=== PATIENT | male | born 1960 | race Caucasian/White ===

== ENCOUNTER 2020-10-13 08:51 | Outpatient (CLI) | payer OTHER, SELFPAY ==
--- NOTE | ~2020-10-13 | CT_ITS ---
EXAMINATION:CT lung screening DATE: 10/13/2020 09:15 INDICATION: Personal history of tobacco dependence. Smoker who quit 5 years ago with 30 pack year his tory. TECHNIQUE: Computed tomography (CT) of the chest was performed without intravenous contrast. Automate d exposure control and iterative reconstruction technique were employed. The dose-length product (DLP ) was 448.51 mGy-cm. COMPARISON: None. FINDINGS: There is a 5 mm nodule in right middle lobe. There is a 5 mm nodule in right lower lobe. Th ere is a 4 mm nodule at left major fissure. No pleural effusion. The heart size is normal. No pericar dial effusion. Calcifications in the spleen are consistent with old granulomatous disease. In the rig ht posterior thorax, there is a 5.3 x 2.8 x 4.5 cm subcutaneous mass. There is mild thoracic spondylo sis. IMPRESSION: 1. Lung-RADS category 2: Benign appearance or behavior. Continue annual screening with noncontrast lo w-dose chest CT in 12 months. 2. 5.3 cm subcutaneous mass in right posterior thorax. The differential diagnosis includes sebaceous cyst and neoplasm. Consider ultrasound-guided core needle biopsy. Reviewed, dictated and finalized at location A. IMPRESSION: 1. Lung-RADS category 2: Benign appearance or behavior. Continue annual screeni ng with noncontrast low-dose chest CT in 12 months. 2. 5.3 cm subcutaneous mass in right posterior thorax. The differential diagnos is includes sebaceous cyst and neoplasm. Consider ultrasound-guided core needle biopsy.
== END 2020-10-13 08:52 | disposition home or self-care (01) ==
PROVIDERS: PCP Internal Medicine; Visit Provider Clinical Nurse Specialist
DX: Z87.891 Personal history of nicotine dependence (principal)
CPT/HCPCS: 71271

== ENCOUNTER → 2020-10-24 00:33 | Outpatient (CLI) | payer OTHER, SELFPAY ==
[2020-10-24 17:44] LABS: SARS-CoV-2 RNA PCR Negative
== END ==
PROVIDERS: PCP Internal Medicine; Visit Provider Surgery
DX: Z01.812 Encounter for preprocedural laboratory examination (principal); Z20.822 Contact with and (suspected) exposure to COVID-19
CPT/HCPCS: C9803; U0003; U0005

== ENCOUNTER 2020-10-24 09:09 | Outpatient (CLI) | payer OTHER, SELFPAY ==
--- NOTE | 2020-10-24 10:45 | ECG_ITS ---
Measurements Intervals [place] Rate: 56 P: 59 PA: 184 QRS: 60 QRSD: 107 T: 29 QT: 415 QTc: 403 Interpretive Statements SINUS BRADYCARDIA BORDERLINE R WAVE PROGRESSION, ANTERIOR LEADS BORDERLINE ECG Electronically Signed On 10-24-2020 10:26:40 CDT by Marcus Mcpherson D.O.
== END 2020-10-24 09:10 | disposition home or self-care (01) ==
PROVIDERS: PCP Internal Medicine; Visit Provider Surgery
DX: E78.5 Hyperlipidemia, unspecified (principal); I10 Essential (primary) hypertension; R94.31 Abnormal electrocardiogram [ECG] [EKG]
CPT/HCPCS: 93005

== ENCOUNTER 2020-10-27 01:27 | Day surgery (SDC) | payer OTHER, SELFPAY ==
[2020-10-23 08:23] VITALS: BMI 38.0
[2020-10-27] VITALS (11 sets, daily range): BP systolic 153–181; BP diastolic 60–83; PULSE 59–71; RESP 12–20; TEMP 36.6–37.2; O2SAT 96–100; BMI 39.2
[2020-10-27] MEDS: LACTATED RINGERS 1,000 ML 30 ML IV CONT ×2 (11:41→15:25)
--- NOTE | 2020-10-27 12:15 | WPDANESEPPF ---
Anes - Initial Pre Proc Eval Procedure: Operation Date: 10/27/20 13:00 Proposed Procedures p Excision Of Right Upper Back Mass - Zach Soni MD Date/Time: 10/27/20 12:15 Surgeon: Zach Soni MD Pre Op Diagnosis: Upper Back Mass Patient Data Age: 60 Gender: M Height: 5 ft 10 in Weight: 124 kg Last Vital Signs Temp 37.2 C 10/27/20 11:30 Pulse 71 10/27/20 11:30 Resp 14 10/27/20 11:30 BP 166/83 H 10/27/20 11:30 Pulse Ox 98 10/27/20 11:30 Allergies Allergy/AdvReac Type Severity Reaction Status Date / Time No Known Allergies Allergy Unverified 10/23/20 08:21 Home Medications Medication Instructions Recorded Confirmed Type cholecalciferol (vitamin D3) 10 400 unit PO DAILY 09/27/19 10/27/20 History mcg (400 unit) capsule multivitamin 1 tablet PO DAILY 09/27/19 10/27/20 History metoprolol succinate 25 mg 25 mg PO BID #180 tablet 03/27/20 10/27/20 Rx tablet,extended release 24 hr amlodipine 10 mg tablet 10 mg PO DAILY #90 tablet 05/28/20 10/27/20 Rx clonidine HCl 0.2 mg tablet 0.2 mg PO BID #180 tablet 08/06/20 10/27/20 Rx aspirin 81 mg tablet,delayed 81 mg PO DAILY 09/18/20 10/27/20 History release atorvastatin 10 mg tablet 10 mg PO DAILY #90 tablet 09/18/20 10/27/20 Rx Patient hx anesthesia problems: none Family hx anesthesia problems: none PMFSH Past Medical History Medical History Cellulitis Hyperlipidemia Hypertension Lower extremity edema Tobacco abuse Surgical History Surgical History History of hip replacement 2018 Family History Family History Father Family history of gout Hypertension Mother Hypertension Family history of rheumatoid arthritis Family history of arthritis Grandparent Hypertension Cerebrovascular accident, Onset Age: 80 Family history of malignant neoplasm Family history of Alzheimer's disease Sibling Hypertension Social History Social History Smoking packs per day: 0.25 Smoking cigarettes per day: 5.0 Years smoked: 40 Smoking pack-years: 10.00 Smoking status: Current every day smoker Tobacco type: cigarettes Additional smoking assessment comments: HAS CUT BACK TO 0.25 PPD Alcohol intake: current Alcohol use details: OCCASSIONAL GLASS OF WINE Substance use: unknown Substance use type: does not use Living arrangements: alone 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[employer] Gender identity (if verbalized by the patient): Male Spiritual care concerns: No Anes - Eval Final PreProcedure Day of Procedure 10/27/20 12:15 Patient weight: morbidly obese Heart: regular rate and rhythm Lungs: decreased breath sounds Airway: Mallampati scale class II Neurological: alert and oriented Last oral intake: >/= 8 hours ASA classification: III Emergent: no Anesthetic plan: proceed Anesthesia type and monitoring: general LMA and standard monitoring Informed Consent: The patient's anesthetic plan and its attendant risks and benefits were discussed with the patient/family/POA. Questions were solicited and answers provided to the satisfaction of the patient/family/POA.
--- NOTE | 2020-10-27 13:07 | SUR.PREOP ---
1305-PT AWARE SURGEON DELAYS SELF ~45-60 MINUTES.
--- NOTE | 2020-10-27 14:05 | WPDHPUPDATE1 ---
History and Physical Update Update Date/Time: 10/27/20 14:05 History and Physical has been reviewed, including an updated exam of the patient. There are NO changes in the patient's condition. Risks, benefits, and alternatives have been discussed and questions answered. Patient agrees to proceed with procedure.
[2020-10-27] MEDS: ceFAZolin 3 GM/D5W 100 ML 100 ML IVPB (14:37)
[2020-10-27] MEDS: BUPIVACAINE/EPINEPHRINE 0.5% 30 ML VIAL 20 ML INFILTRATE (14:49)
--- NOTE | 2020-10-27 15:27 | PM.PROC ---
Procedure Note - Detailed Date of procedure: 10/27/20 Pre-op diagnosis: Upper Back Mass 1. Subcutaneous mass right upper back 9 x 7 cm Post-op diagnosis: same Procedure performed: Excision of skin lesion and subcutaneous mass right upper back (suspected epidermal cyst versus lipoma) Description of procedure: The patient was placed in the far left lateral decubitus position exposing the mass on the right upper back. After a surgical time out confirming patient and procedure the patient was prepped and draped in the usual sterile fashion. Local anesthetic was administered subcutaneously. The lesion measured 9 x 7 cm and a skin ellipse measuring 9 x 2 cm was excised over the mass and removed with the mass. An elliptical incision was made around the lesion (9 x 2 cm) taking a thin margin circumferentially. I dissected down to the deep subcutaneous tissues and then completely excised the lesion. Ten blade knife and Bovie cautery were used for the dissection. Bleeding was controlled with electrocautery. The wound was closed in two layers. An un-dyed 2-0 vicryl subcutaneous followed by both for deep dermal sutures and then a 3-0 undyed Mpnocryl running subcuticular closure was completed. Surgical glue applied as dressing. Patient tolerated this well. Estimated blood loss 5 cc Implants: none Anesthesia: GETA Surgeon: Zach Soni MD Telephone Order Dispatcher: GENEVIEVE Baker, OR 1st assist Estimated blood loss (mL): 5 Drains: No Packing: No Pathology: yes (Ellipse of skin overlying 9 x 7 cm subcutaneous mass (suspected lipoma versus epidermal cyst).) Complications: No immediate complications Condition: stable Disposition: PACU Findings: A 9 x 7 cm subcutaneous mass that may be connected to a small poor like opening in the center of the skin ellipse excised over it. I did not enter any cystic cavity during the excision.
[2020-10-27] MEDS: DICLOFENAC SODIUM 0.1% OPHTH SOLN 2.5 ML BOTTLE 1 DROP EACH EYE (16:45)
[2020-10-27] MEDS: PROPARACAINE HCL 0.5% 15 ML OPHTH SOLN 1 DROP EACH EYE (16:45)
== END 2020-10-27 17:22 | disposition home or self-care (01) ==
PROVIDERS: PCP Internal Medicine; Visit Provider Surgery
PROC: (CPT 11406; principal; 2020-10-27 13:00)
DX: L72.0 Epidermal cyst (principal); I10 Essential (primary) hypertension; E78.5 Hyperlipidemia, unspecified; F17.210 Nicotine dependence, cigarettes, uncomplicated; E66.01 Morbid (severe) obesity due to excess calories; Z68.39 Body mass index [BMI] 39.0-39.9, adult; Z79.82 Long term (current) use of aspirin
CPT/HCPCS: 11406; 12034; 88304; 93005; A9270; C9803; J0330; J0690; J1100; J2250; J2405; J2704; J3010; J7120; U0003; U0005

== ENCOUNTER 2023-04-25 01:34 | Day surgery (SDC) | payer OTHER, SELFPAY ==
[2023-04-07 14:23] VITALS: BMI 38.7
[2023-04-25 08:10] VITALS: BP 208/87; PULSE 60; RESP 18; TEMP 36.3; O2SAT 97
[2023-04-25] MEDS: LACTATED RINGERS 1,000 ML 150 ML IV CONT (08:26)
--- NOTE | 2023-04-25 08:30 | SUR.OPER ---
Pt blood pressure 208/87. States he did not take blood pressure medications yesterday or today. Dr. Brewster anesthesiologist notified. No new orders received.
--- NOTE | 2023-04-25 08:57 | PM.HPGS ---
History of Present Illness History of Present Illness Consent: Risks, benefits, and alternatives have been discussed and questions answered. Patient agrees to proceed with procedure. Chief complaint: hx of colon polyps Narrative: Brian Canseco is a 63 year old male Presents for screening colonoscopy. Patient's current weight appetite and bowel movements are normal. Patient denies abdominal pain. He has had no bleeding. Family history noncontributory. Patient was found to have a benign colon polyp previous colonoscopy 2018. Review of Systems Review of Systems: Review of systems noncontributory. [facility] Past Medical History Medical History Cellulitis Hyperlipidemia Hypertension Lower extremity edema Tobacco abuse Surgical History Surgical History History of hip replacement 2018 Mass on back removal on 10/27/20 Family History Family History Father Family history of gout Hypertension Mother Hypertension Family history of rheumatoid arthritis Family history of arthritis Grandparent Hypertension Cerebrovascular accident, Onset Age: 80 Family history of malignant neoplasm Family history of Alzheimer's disease Sibling Hypertension Social History Social History Smoking packs per day: 0.75 Smoking cigarettes per day: 15.0 Years smoked: 40 Smoking pack-years: 30.00 Smoking status: Former smoker Tobacco type: cigarettes Additional smoking assessment comments: HAS CUT BACK TO 0.25 PPD Alcohol intake: current Alcohol use details: OCCASSIONAL GLASS OF WINE Substance use: current Substance use type: marijuana Other substance usage details: SMOKES OCC. 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[employer] Gender identity (if verbalized by the patient): Male Spiritual care concerns: No Meds Home Medications and Allergies Home Medications Medication Instructions Recorded Confirmed Type multivitamin 1 tablet PO DAILY 09/27/19 04/07/23 History aspirin 81 mg tablet,delayed 81 mg PO DAILY 09/18/20 04/07/23 History release (Alexei Low Dose Aspirin) clonidine HCl 0.2 mg tablet See Rx Instructions .Route 12/23/22 04/07/23 Rx .COMPLEX #180 tabs atorvastatin 10 mg tablet 10 mg PO DAILY #90 tabs 02/02/23 04/07/23 Rx sodium,potassium,mag sulfates 17.5 See Rx Instructions PO .COMPLEX 03/03/23 Rx gram-3.13 gram-1.6 gram oral soln #354 mL (Suprep Bowel Prep Kit) amlodipine 10 mg tablet 10 mg PO DAILY #90 tabs 03/30/23 04/07/23 Rx metoprolol succinate 25 mg 12.5 mg PO BID #90 tabs 03/30/23 04/07/23 Rx tablet,extended release 24 hr cholecalciferol (vitamin D3) 25 50 mcg PO DAILY 04/07/23 04/07/23 History mcg (1,000 unit) tablet (Vitamin D3) Allergies Allergy/AdvReac Type Severity Reaction Status Date / Time No Known Allergies Allergy Unverified 04/25/23 08:09 Vital Signs Vital Signs - 24 hr 04/25/23 08:10 Temperature 97.4 F L Pulse Rate 60 Respiratory Rate 18 Blood Pressure 208/87 H Pulse Oximetry 97 Oxygen Delivery Room Air Exam Narrative: Physical exam reveals patient to be alert. Vital signs stable. HEENT exam is unremarkable. Patient is anicteric. Lungs are clear to auscultation and percussion. Heart is without murmur or extra sounds. Abdomen bowel sounds are present soft nontender with no organomegaly. Digital external rectal exam normal. Assessment and Plan Assessment and plan (1) Screening for colon cancer: Code(s): Z12.11 - Encounter for screening for malignant neoplasm of colon Status: Acute Assessment and Plan: Patient presents for screening colonoscopy. He does have a prior h
--- NOTE | 2023-04-25 09:05 | WPDANESEPPF ---
Anes - Initial Pre Proc Eval Procedure: Operation Date: 04/25/23 09:30 Proposed Procedures p Colonoscopy - Nikolay Borrego MD Date/Time: 04/25/23 09:05 Surgeon: Nikolay Borrego MD Pre Op Diagnosis: hx of colon polyps Patient Data Age: 63 Gender: M Height: 1.78 m Weight: 123.2 kg Last Vital Signs Temp 97.4 F L 04/25/23 08:10 Pulse 60 04/25/23 08:10 Resp 18 04/25/23 08:10 BP 208/87 H 04/25/23 08:10 Pulse Ox 97 04/25/23 08:10 O2 Del Method Room Air 04/25/23 08:10 Allergies Allergy/AdvReac Type Severity Reaction Status Date / Time No Known Allergies Allergy Unverified 04/25/23 08:09 Home Medications Medication Instructions Recorded Confirmed Type multivitamin 1 tablet PO DAILY 09/27/19 04/07/23 History aspirin 81 mg tablet,delayed 81 mg PO DAILY 09/18/20 04/07/23 History release (Alexei Low Dose Aspirin) clonidine HCl 0.2 mg tablet See Rx Instructions .Route 12/23/22 04/07/23 Rx .COMPLEX #180 tabs atorvastatin 10 mg tablet 10 mg PO DAILY #90 tabs 02/02/23 04/07/23 Rx sodium,potassium,mag sulfates 17.5 See Rx Instructions PO .COMPLEX 03/03/23 Rx gram-3.13 gram-1.6 gram oral soln #354 mL (Suprep Bowel Prep Kit) amlodipine 10 mg tablet 10 mg PO DAILY #90 tabs 03/30/23 04/07/23 Rx metoprolol succinate 25 mg 12.5 mg PO BID #90 tabs 03/30/23 04/07/23 Rx tablet,extended release 24 hr cholecalciferol (vitamin D3) 25 50 mcg PO DAILY 04/07/23 04/07/23 History mcg (1,000 unit) tablet (Vitamin D3) Patient hx anesthesia problems: none Family hx anesthesia problems: none Results Review: All pre-operative results and documents have been reviewed as part of the pre-operative evaluation. [facility] Past Medical History Medical History Cellulitis Hyperlipidemia Hypertension Lower extremity edema Tobacco abuse Surgical History Surgical History History of hip replacement 2018 Mass on back removal on 10/27/20 Family History Family History Father Family history of gout Hypertension Mother Hypertension Family history of rheumatoid arthritis Family history of arthritis Grandparent Hypertension Cerebrovascular accident, Onset Age: 80 Family history of malignant neoplasm Family history of Alzheimer's disease Sibling Hypertension Social History Social History Smoking packs per day: 0.75 Smoking cigarettes per day: 15.0 Years smoked: 40 Smoking pack-years: 30.00 Smoking status: Former smoker Tobacco type: cigarettes Additional smoking assessment comments: HAS CUT BACK TO 0.25 PPD Alcohol intake: current Alcohol use details: OCCASSIONAL GLASS OF WINE Substance use: current Substance use type: marijuana Other substance usage details: SMOKES OCC. 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 Informed Consent: The patient's anesthetic plan and its attendant risks and benefits were discussed with the patient/family/POA. Questions were solicited and answers provided to the satisfaction of the patient/family/POA.
[2023-04-25 09:50] VITALS: BP 172/89; PULSE 54; RESP 19; O2SAT 97
[2023-04-25 10:00] VITALS: BP 172/89; PULSE 50; RESP 18; O2SAT 97
[2023-04-25 10:10] VITALS: BP 204/100; PULSE 55; RESP 17; O2SAT 97
== END 2023-04-25 10:15 | disposition home or self-care (01) ==
PROVIDERS: PCP Internal Medicine; Visit Provider Internal Medicine Gastroenterology
PROC: 0DJD8ZZ Inspection of Lower Intestinal Tract, Via Natural or Artificial Opening Endoscopic (ICD-10-PCS; CPT 45378; principal; 2023-04-25 09:30)
DX: Z12.11 Encounter for screening for malignant neoplasm of colon (principal); D12.8 Benign neoplasm of rectum; K64.8 Other hemorrhoids; K57.30 Diverticulosis of large intestine without perforation or abscess without bleeding; I10 Essential (primary) hypertension; E78.5 Hyperlipidemia, unspecified; Z79.82 Long term (current) use of aspirin; F17.210 Nicotine dependence, cigarettes, uncomplicated; F12.90 Cannabis use, unspecified, uncomplicated; E66.01 Morbid (severe) obesity due to excess calories; Z68.39 Body mass index [BMI] 39.0-39.9, adult
CPT/HCPCS: 45385; 88305; J2704; J7120

== ENCOUNTER 2024-08-28 10:09 | Outpatient (CLI) | payer OTHER, SELFPAY ==
[2024-08-28 10:28] LABS: Basophils Absolute Auto 0.1 K/mm3 (0.0-0.1); Basophils Percent Auto 0.4 % (0.2-1.2); Eosinophils Absolute Auto 0.1 K/mm3 (0-0.3); Eosinophils Percent Auto 1.1 % (0-4.4); Hematocrit 45.2 % (42.0-52.0); Hemoglobin 15.7 g/dL (14.0-18.0); Immature Granulocyte Absolute 0.04 K/mm3 (0.00-0.031); Immature Granulocyte Percent A 0.3 % (0-0.5); Lymphocytes Percent Auto 20.2 % (18.3-44.2); Mean Corpuscular HGB Conc 34.7 g/dl (32-36); Mean Corpuscular Hemoglobin 29.3 pg (26-34); Mean Corpuscular Volume 84.5 fl (80-100); Mean Platelet Volume 10.1 fl (7.4-10.4); Monocytes Absolute Auto 0.9 K/mm3 (0.1-0.6); Monocytes Percent Auto 7.7 % (2.6-8.5); Neutrophils Absolute Auto 8.4 K/mm3 (1.3-6.7); Neutrophils Percent Auto 70.3 % (45.5-73.1); Platelet Count Result 257 k/mm3 (150-375); Red Blood Count 5.35 M/mm3 (4.6-6.20); White Blood Count 11.9 K/mm3 (4.5-10.0)
[2024-08-28 10:57] LABS: Anion Gap 11 mmol/L (4-12); Blood Urea Nitrogen 10 mg/dL (9-20); Carbon Dioxide 25 mmol/L (22-30); Chloride 102 mmol/L (98-107); Estimated Glomerular Filt Rate > 60; Glucose 117 mg/dL (65-110); Potassium 3.9 mmol/L (3.4-5.0); Sodium 138 mmol/L (137-145)
--- OUTSIDE RECORDS SUMMARY | 2024-08-28 11:03 | XMS_ITS | Referral Summary ---
Author Organization [facility] [address] [place] [address] Care Team Providers Care Heat Treat Inspector Name Role Phone Max Winters DO Primary Care Provider [phone]- [phone] Allergies No known active allergies Medications metoprolol XL (TOPROL-XL) 25 mg extended release tablet 02/14/2022 Active cloNIDine (CATAPRES) 0.2 mg tablet 02/14/2022 Active atorvastatin (LIPITOR) 10 mg tablet 02/14/2022 Active amLODIPine (NORVASC) 10 mg tablet 02/14/2022 Active Active Problems No known active problems Social History Tobacco Use Types Packs/Day Years Used Date Smoking Tobacco: Every Day Personal Safety Answer Date Recorded Getting School Help Needed Not on file 10/01 Sex and Gender Information Value Date Recorded Sex Assigned at Not on file Legal Sex Male 8:32 AM CDT Gender Identity Not on file Sexual Orientation Not on file Last Filed Vital Signs Vital Sign Reading Time Taken Comments Blood Pressure 147/74 03/10/2022 8:53 AM CDT Pulse 67 03/10/2022 8:47 AM CDT Temperature 37 ??C (98.6 ??F) 03/10/2022 8:47 AM CDT Respiratory Rate 18 03/10/2022 8:47 AM CDT Oxygen Saturation 97% 03/10/2022 8:47 AM CDT Inhaled Oxygen Concentration - - Weight 124.3 kg (274 lb) 03/10/2022 8:47 AM CDT Height 177.8 cm (5' 10 ) 03/10/2022 8:47 AM CDT Body Mass Index 39.31 03/10/2022 8:47 AM CDT Plan of Treatment Not on file Insurance [facility] H[facility]/PPO Address: [facility] [id number] [place] [address] Care Teams Heat Treat Inspector Relationship Specialty Start Date End Date Max Winters DO PCP - General Internal Medicine 03/10/22
--- OUTSIDE RECORDS SUMMARY | 2024-08-28 11:03 | XMS_ITS | Clinical Summary ---
Author Organization [facility] Shirin ewing [address] Address [address] [place] [address] Care Team Providers Care Discount Clerk Name Role Phone Unavailable Primary Care Provider Unavailabl e Allergies No known active allergies Medications cloNIDine HCL (CATAPRES) 0.2 mg tablet Take 0.2 mg by mouth 2 times daily. 02/14/2022 Active amLODIPine (NORVASC) 10 mg tablet Take 10 mg by mouth daily. 02/14/2022 Active atorvastatin (LIPITOR) 10 mg tablet Take 5 mg by mouth daily at bedtime. 02/14/2022 Active Active Problems No known active problems Encounters Date Type Department Care Team Description 08/21/2024 Telephone [facility] Oncology and Hematology [facility] [address] [place] [address] Yimi Do MD Lab Auth 08/21/2024 Abstract [facility] Oncology and Hematology [facility] [address] [place] [id number] Yimi Do MD 08/15/2024 External Device Data [facility] ABSTRACTION Provider, Abstract 08/07/2024 External Device Data [facility] ABSTRACTION Provider, Abstract 07/31/2024 10:30 AM DATA TYPIST Office Visit [facility] Oncology and Hematology [facility] [address] [place] [address] Susanne Davila MD Leukocytosis, unspecified type (Primary Dx) from Last 3 Months Family History Medical History Relation Name Comments No Known Problems Brother No Known Problems Father Arthritis Mother Relation Name Status Comments Brother Alive Father Alive Mother Social History Tobacco Use Types Packs/Day Years Used Date Smoking Tobacco: Every Day Cigarettes 2 45.1 Started: 1979 Smokeless Tobacco: Never Alcohol Use Standard Drinks/Week Comments Not Currently 0 (1 standard drink = 0.6 oz pur e alcohol) Sex and Gender Information Value Date Recorded Sex Assigned at Male 07/31/2024 1:12 PM DATA TYPIST Legal Sex Male 10:40 AM DATA TYPIST Gender Identity Male 07/31/2024 1:12 PM DATA TYPIST Sexual Orientation Straight 07/31/2024 1: 12 PM DATA TYPIST Last Filed Vital Signs Vital Sign Reading Time Taken Comments Blood Pressure 157/85 07/31/2024 10:26 AM DATA TYPIST Pulse 65 07/31/2024 10:21 AM DATA TYPIST Temperature 36.3 ??C (97.4 ??F) 07/31/2024 10:[address] Respiratory Rate 17 07/31/2024 10:21 AM DATA TYPIST Oxygen Saturation 96% 07/31/2024 10:21 AM DATA TYPIST Inhaled Oxygen Concentration - - Weight 129.3 kg (285 lb) 07/31/2024 10:21 AM DATA TYPIST Height 177.8 cm (5' 10 ) 07/31/2024 10:21 AM DATA TYPIST Body Mass Index 40.89 07/31/2024 10:21 AM DATA TYPIST Plan of Treatment Upcoming Encounters Date Type Department Care Team (Late st Contact Info) Description 09/05/2024 10:00 AM DATA TYPIST Office Visit [facility] Oncology and Hematology [facility] [address] [place] [address] [facility] [address] [place] [address] Yimi Do MD [address] [facility] [address] [place] [address] Health Maintenance Due Date Last Done Comments Pre-Diabetes and Diabetes Screening 1959 DTAP/TDAP/TD VACCINES (1 - Tdap) 1978 PNEUMOCOCCAL VACCINE 65+ YEARS (1 of 2 - PCV) 01/07/19 78 COLORECTAL SCREENING 01/08/2004 Colorectal Cancer Screening 01/08/2004 FIT-DNA Q 3 years 01/08/2004 FIT/FOBT Q 1 year 01/08/2004 Flex Sig/CT Colonography Q 5 years 01/08/2004 Lung Cancer Screening 2009 ZOSTER VACCINE (1 of 2) 2009 RSV VACCINE (60+ or ) (1 - Risk 60-74 years 1-dose series) 2019 Abdominal Aortic Aneurysm (AAA) Screening 01/08/2024 INFLUENZA VACCINE (#1) 2024 Medicare Advantage ([place]) Prev entative Visit/Annual Wellness Visit 08/01/2024 Insurance [facility] Address: [facility] [address] [address]
--- OUTSIDE RECORDS SUMMARY | 2024-08-28 11:03 | XMS_ITS | Clinical Summary ---
Author Organization [facility] [address] [place] [address] Care Team Providers Care College Sports Assistant Name Role Phone Max Winters DO Primary Care Provider +1- [phone] Allergies No known active allergies Medications metoprolol XL (TOPROL-XL) 25 mg extended release tablet 02/14/2022 Active cloNIDine (CATAPRES) 0.2 mg tablet 02/14/2022 Active atorvastatin (LIPITOR) 10 mg tablet 02/14/2022 Active amLODIPine (NORVASC) 10 mg tablet 02/14/2022 Active Active Problems No known active problems Surgical History Surgery Date Site/Laterality Comments TOTAL HIP ARTHROPLASTY Social History Tobacco Use Types Packs/Day Years Used Date Smoking Tobacco: Every Day Personal Safety Answer Date Recorded Getting School Help Needed Not on file 10/01 Sex and Gender Information Value Date Recorded Sex Assigned at Not on file Legal Sex Male 8:32 AM CDT Gender Identity Not on file Sexual Orientation Not on file Obstetrics History Last Filed Vital Signs Vital Sign Reading [...] 03/10/2022 8:47 AM CDT Plan of Treatment Health Maintenance Due Date Last Done Comments Colon Cancer Screening-Colonoscopy 1959 Depression Screening 1959 Fall Risk Assessment 1959 Hepatitis C Screening 1959 Prostate Cancer Screening-PSA 1959 Pneumococcal vaccine 65+ (1 of 2 - PCV) 1965 Hepatitis B Screening 1977 Zoster Vaccine (2 of 2) 01/04/2022 11/09/2021 Abdominal Aortic Aneurysm (AAA) Screen 01/08/2024 Well Visit 65+ 01/08/2024 Covid-19 Vaccine (2 - season) 04/01/202410/2020 Influenza Vaccine (#1) 2024 DTaP/Tdap/Td Vaccine (2 - Td or Tdap) 11/10/203106/2022 Insurance Care Teams College Sports Assistant Relationship Specialty Start Date End Date Max Winters DO PCP - General Internal Medicine 03/10/22
--- OUTSIDE RECORDS SUMMARY | 2024-08-28 11:03 | XMS_ITS ---
Author Organization [facility] Orthopedics [facility] Address [address] [place], [place] [id number] Care Team Providers Care Allergy And Immunology Specialist Name Role Phone Oracio Gao Primary Care Provider Drew Ferguson Unavailable [phone] ALLERGIES No Known Allergies REASON FOR VISIT Left hip pain MEDICATIONS Medication SIG (Take, Route, Fr equency, Duration) Notes Start Date End Date Status amLODIPine Besylate Active cloNIDine HCl Active Metoprolol Tartrate Active SOCIAL HISTORY Tobacco Use: Social History Observation Description Date Details (start date - stop date) Current Smoker NA - NA Sex Assigned At : Social History Observation Description Sex Assigned At Unknown Tobacco Use/Smoking Question Answer Notes Are you a current smoker When did you start smoking? 1998 How often do you smoke cigarettes? every day How many cigarettes a day do you smoke? -20 PROBLEMS Problem Type ICD Code Onset Dates Problem Status W/U Status Risk SNOMED Code Notes Problem Left hip pain (M25.552) Active confirmed Arthralgia of the pelvic region and thigh (151059952) Problem Arthritis of left hip (M16.12) Active confirmed Arthritis of left hip (96759444644057 05) VITAL SIGNS BMI 39.45 kg/m2 03/03/2023 Blood pressure systolic 133 mm Hg 03/03/20 23 Blood pressure diastolic 75 mm Hg 023 Height 70 in 03/03/2023 Weight 275 lbs 03/03/2023 Encounters Encounter Location Date Provider Diagnosis [facility] Orthopedics [employer] [address] [place], [place] [id number] 03/03/2023 Drew Truong Left hip pain M25.552 and Arthritis of left hip M16.12 ASSESSMENTS Encounter Date Diagnosis Assessment Notes Treatment Notes Treatment Clinical Notes 03/03/2023 Left hip pain (ICD-10 - M25.552) 03/03/2023 Arthritis of left hip (ICD-10 - M16.12) 03/03/2023 Other Today we discus sed treatment options. He is definitely interested in proceeding with a [employer] hip replacement at some point; however, he does not think he needs it at this moment. He is thinking maybe at the beginning of next year or the middle of next year. I told him that we would be happy to see him back if he feels like his symptoms are getting worse. Until then, I suggested hzsr-[id number]-kqfiprz nonsteroidal anti-inflammatory drugs to help with his pain and inflammation. I will plan on seeing him back then if he would like to proceed with the surgery. PLAN OF TREATMENT Treatment Notes Assessment Notes Other Today we discussed t reatment options. He is definitely interested in proceeding with a [employer] hip replacement at some point; however, he does not think he needs it at this moment. He is thinking maybe at the beginning of next year or the middle of next year. I told him that we would be happy to see him back if he feels like his symptoms are getting worse. Until then, I suggested iszf-mxu-hkwmvmn nonsteroidal anti-inflammatory drugs to help with his pain and inflammation. I will plan on seeing him back then if he would like to proceed with the surgery. Pending Test Test Name Order Date X ray : Hip, left, 2 03/03/2023
--- OUTSIDE RECORDS SUMMARY | 2024-08-28 11:04 | XMS_ITS | Continuity of Care Document ---
Author Organization [facility] Address [address] [place] [address] Phone Care Team Providers Care Seed Yeast Operator Name Role Phone Beka Fine MD Unavailable Unavailable Allergies, Adverse Reactions, Alerts Substance Reaction Status Criticality No Known Allergies Active No Inform ation Medications Medication Instructions Dosage Effective Dates (start - stop) Status Comments IBUPROFEN (unknown strength) Not Available - Active Procedures Procedure Date OFFICE/OUTPATIENT VISIT [facility] Advance Directives Directive Yes / No Effective Date File Name No Information Encounters Encounter Description Practice Location Reason(s) For Visit Diagnoses Date Provider Providers Copied on Encounter OFFICE/OUTPA TIENT VISIT [facility], [address], [place], [address], [place] tel:[phone] [facility] Orthoped[facility] HIP PAIN (chief complaint) Primary osteoarthritis of right hipBody mass index (BMI) 33.0-33.9, adult Oct-201 [address] [place], [place], [address] . tel:[phone] Referring Provider: Travis Crum S, [address] [place], [address] . tel:[phone] Family History Family Member Type Diagnosis Age At Onset Brother Problem (finding) Alive and well Payers Payer name Insurance type Covered alliance party ID Authoriza tion(s) No Information Social History Type Description Quantity Date Captured Comments Alcohol Use Details Unknown Caffeine Use Details Unknown Tobacco Use Status Heavy cigarette smok er (20-39 cigs/day) Smoking Status Heavy tobacco smoker Smoking Tobacco Use Details Cigarette: No Details Available Cigarette: 1 Packs per day Sex Male Vital Signs Date / Time: Height Weight BMI Pulse Rate Blood Pressure Temperature Respiratory Rate Body Surface Area Head Circumference Head Circ. Percentile Wt./Robert. Percentile BMI percentile Pulse Ox Inhaled Ox 9:43 AM 70.00 in 106.594 kg (235.00 lbs) 33.7 2 kg/m eter (2) 226/95 mm[Hg] Chief Complaint And Reason For Visit From encounter dated '11/25/2017 08:35'. RT HIP PAIN (chief complaint) Reason For Referral Reason For Referral No Information Plan Of Treatment Date Type Action Status Goal Smoking cessation education completed Goal Tobacco cessation counseling completed Referral Ordered: X-RAY EXAM HIP UNI W PELVIS 2-3 VIEWS RT ordered History Of Present Illness Encounter Date Complaint History Of Prese nt Illness RT HIP PAIN Functional Status Date Functional Assessmen t No Information Instructions Date Instruction Additional Infor mation Weight monitoring Related to Bod y mass index (BMI) 33.0-33.9, adult activity as tolerated Related to Primary osteoarthritis of right hip apply heating pad or ice as tolerated Related to Primary osteoarthritis of right hip Assessments Type Assessment Date assessment Primary osteoarthritis of right hip assessment Body mass index (BMI) 33.0-33.9, adult Patient Care Teams Name Effective Dates (start - stop) Status Members No Information
--- OUTSIDE RECORDS SUMMARY | 2024-08-28 11:04 | XMS_ITS | Patient Health Record ---
Author Organization [facility] Orthopedics [facility] Address [address] [place], [place] [id number] Care Team Providers Care Single Ending Machine Operator Name Role Phone Oracio Gao Primary Care Provider Drew Ferguson Unavailable [phone] ALLERGIES No Known Allergies REASON FOR REFERRAL No Information MEDICATIONS Medication SIG (Take, Route, Fr equency, [...] many cigarettes a day do you smoke? 11-20 PROBLEMS Problem Type ICD Code Onset Dates Problem Status W/U Status Risk SNOMED Code Notes Problem Hypertension (I10) Active confirmed Hyp ertension (95024129) Problem Primary osteoarthritis of right hip (M16.11) Active confirmed 146384557 Problem H/O total hip arthroplasty (Z96.649) Active confirmed History of total hip arthroplasty (890122473447) Problem Essential (primary) hypertension (I10) Active confirmed 65952459 Problem Left hip pain (M25.552) Active confirmed Arthralgia of the pelvic region and thigh (095509096) Problem Arthritis of left hip (M16.12) Active confirmed Arthritis of left hip (52580576062958 05) PLAN OF TREATMENT Pending Test Test Name Order Date X ray : Hip, left, 2 03/03/2023 X ray : Hip, right, 2 03/09/2018 X ray : Hip, right, 2 05/18/2018 X ray : Hip, right, 2 08/17/2018 X ray : Hip, right, 2 01/19/2018 X ray : Hip, right, 2 02/15/2019 X ray : Hip, right, 2 02/14/2020 CBC With Differential/Platelet 8 EKG 12 lead 01/19/2018 BMP 01/19/2018 Insurance Providers Payer Name Payer Address Payer Phone Subscriber Number Group Number Insured Name Patient Relationship to Insured Coverage Start Date Coverage End Date [facility] [address] [address] [address] [place] [address] [id number] Brian Canseco Self - patient is the insured MEDICAL (GENERAL) HISTORY Medical History History ICD Code Hypertension I10 Surgical History Surgery Date(Month/Year) Melanoma removed from right arm Right Total Hip Replacement Hospitalization History Reason Date(Month/Year) Same as Surgical Hx
== END 2024-08-28 10:10 | disposition home or self-care (01) ==
LOC: ANHLAB 10:12
PROVIDERS: PCP Internal Medicine; Visit Provider Internal Medicine Hematology & Oncology
DX: D72.829 Elevated white blood cell count, unspecified (principal)
CPT/HCPCS: 36415; 80048; 85025; 88184